=== PATIENT | female | born 1965 | race Two or more races ===

== ENCOUNTER 2025-10-12 15:13 | Inpatient (IN) | payer MEDICAID, OTHER ==
[~2025-10-12] VITALS: Ht 170.2 cm; Wt 121.5 kg
[2025-10-12 15:55] LABS: Hematocrit 40.3 % (36.0-46.0); Hemoglobin 13.7 g/dL (12.2-16.2); Mean Corpuscular Hemoglobin 29.9 pg (28.0-32.0); Mean Corpuscular Volume 87.8 fL (80.0-100.0); Nucleated Red Blood Cells % 0.1 %
--- NOTE | 2025-10-12 15:58 | DVH ---
INDICATION: dizziness TECHNIQUE: Frontal view of the chest. COMPARISON: None FINDINGS/IMPRESSION: The lungs are clear. The cardiomediastinal silhouette is unremarkable. No pleural effusion or pneumothorax. No acute osseous abnormality.
[2025-10-12 16:03] LABS: Chloride 102 mmol/L (98-107); Potassium 4.4 mmol/L (3.5-5.1); Sodium 141 mmol/L (136-145)
[2025-10-12 16:04] LABS: Anion Gap 12 (5-15); Carbon Dioxide 27 mmol/L (20-31)
[2025-10-12 16:09] LABS: BUN/Creatinine Ratio 13.5 (10.0-20.0); Glucose 91 mg/dL (74-106)
[2025-10-12 16:14] LABS: Blood Urea Nitrogen 31 mg/dL (9-23)
[2025-10-12 16:16] LABS: Calcium 13.0 mg/dL (8.7-10.4)
--- NOTE | 2025-10-12 16:27 | ED.PDOC ---
HPI (NEURO) HPI Comments 60-year-old female who presents to the ED for chief complaint of dizziness. Patient states her dizziness episode started yesterday while at the end of her shift. Patient stated that she was going to pass out and felt lightheaded but states she did not have a syncopal episode. Patient today earlier this afternoon at work stated that she had a similar episode where she felt lightheaded again but states she did not have a syncopal episode. Patient s tates her dizziness episode became severe that she came to the ED for evaluation. Patient otherwise in the ED is alert oriented x4 and no noted changes in gait patient notes speech are noted. Patient in ED otherwise on any associated injury or trauma. Patient otherwise states that she is currently having nausea. Patient otherwise states that she recently start Mounjaro one week prior for weight loss. Patient in the ED otherwise has stable vitals. Patient denies any other symptoms. 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 [employer] Hx Family History Family History: Reviewed,noncontributory to illness Social History Smoker: Non-Smoker Alcohol: Denies ETOH Use Drugs: Denies Drug Use Lives In: Home Constitutional: denies: chills, diaphoresis, fatigue, fever, malaise, sweats, weakness, others EENTM: denies: blurred vision, double vision, ear bleeding, ear discharge, ear drainage, ear pain, ear ringing, eye pain, eye redness, hearing loss, mouth pain, mouth swelling, nasal discharge, nose bleeding, nose congestion, nose pain, photophobia, tearing, throat pain, throat swelling, voice changes, others Respiratory: denies: cough, hemoptysis, orthopnea, SOB at rest, shortness of breath, SOB with excertion, stridor, wheezing, others Cardiovascular: denies: chest pain, dizzy spells, diaphoresis, Dyspnea on exertion, edema, irregular heart beat, left arm pain, lightheadedness, palpitations, PND, syncope, others Gastrointestinal: reports: nausea; denies: abdomen distended, abdominal pain, blood streaked bowels, constipated, diarrhea, dysphagia, difficulty swallowing, hematemesis, melena, poor appetite, poor fluid intake, rectal bleeding, rectal pain, vomiting, others Genitourinary: denies: abnormal vagina bleeding, burning, dyspareunia, dysuria, flank pain, frequency, hematuria, incontinence, pain, , vagina discharge, urgency, others Neurological: reports: dizziness; denies: fainting, headache, left sided numbness, left sided weakness, numbness, paresthesia, pre-existing deficit, right sided numbness, right sided weakness, seizure, speech problems, tingling, tremors, weakness, others Musculoskeletal: denies: back pain, gout, joint pain, joint swelling, muscle pain, muscle stiffness, neck pain, others Integumetry: denies: bruises, change in color, change in hair/nails, dryness, laceration, lesions, lumps, rash, wounds, others Allergic/Immunocompromised: denies: Difficulty Healing, Frequent Infections, Hives, Itching, others Hematologic/Lymphatic: denies: anemia, blood clots, easy bleeding, easy bruising, swollen glands, others Endocrine: denies: excessive hunger, excessive sweating, excessive thirst, excessive urination, flushing, intolerance to cold, intolerance to heat, unexplained weight gain, unexplained weight loss, others Psychiatric: denies: anxiety, bipolar disorder, depression, hopeless, panic disorder, schizophrenia, sleepless, suicidal, others All Other Systems: Reviewed and Negative Physical Exam General Appearance: No Apparent Distress, Normal HEENT: Normal ENT Inspection, Pharynx Normal, TMs Normal Neck: Full Range of Motion, Non-Tender, Normal, Normal Inspection Respiratory: Chest Non-Tender, Lungs Clear, No Accessory Muscle Use, No Respiratory Distress, Normal Breath Sounds Cardiovascular: No Edema, No JVD, No Murmur, No Gallop, Normal Peripheral Pulses, Regular Rate/Rhythm Breast Exam: Deferred Gastrointestinal: No Organomegaly, Non Tender, No Pulsatile Mass, Normal Bowel Sounds, Soft Genitalia: Deferred Pelvic: Deferred Rectal: Deferred Extremities: No calf tenderness, Normal capillary refill, Normal inspection, Normal range of motion, Non-tender, No pedal edema Musculoskeletal : Apperance: Normal Neurologic: Alert, associate team physician II-XII nml as Tested, No Motor Deficits, Normal Affect, Normal Mood, No Sensory Deficits Cerebellar Function: Normal Reflexes: Normal Skin: Dry, Normal Color, Warm Lymphatic: No Adenopathy Was a procedure done? Was a procedure done?: No Differential Diagnosis (SZ) Seizure: N/A General Weakness: Anemia, Dehydration, Encephalopathy, Hypoglycemia, Hypotension, Meniere's disease, TIA, Vertigo: central, Vertigo: peripheral X-Ray, Labs, Meds, VS Vital Signs Date Time Temp Pulse Resp B/P (MAP) Pulse Ox O2 Delivery O2 Flow Rate FiO2 10/12/25 15:21 86 10/12/25 15:14 98.0 94 15 128/79 99 98.0 Lab Test 10/12/25 16:35 10/12/25 16:05 10/12/25 15:43 10/12/25 15:29 Range/Units Troponin I High Sensitivity Pending 3 L </=34 ng/L Urine Color Light-yellow Yellow Urine Clarity Turbid H Clear Urine pH 5.5 5.0-9.[address] 1.019 1.001-1.035 Urine Protein Trace H Negative Urine Ketones Negative Negative Urine Blood Negative Negative /uL Urine Nitrite Negative Negative Urine Bilirubin Negative Negative Urine Urobilinogen Normal Negative mg/dL Urine Leukocyte Esterase 3+ Negative /uL Urine RBC 2 0 - 4 /hpf Urine Microscopic WBC 51 H 0-5 /HPF Urine Squamous Epithelial Cells Few <5 /hpf Urine Bacteria Few H None Seen /hpf Urine Mucus Few None Seen Urine Glucose Normal Normal mg/dL White Blood Count 7.4 4.4-10.8 10^3/uL Red Blood Count 4.59 4.0-5.20 10^6/uL Hemoglobin 13.7 12.2-16.2 g/dL Hematocrit 40.3 36.0-46.0 % Mean Corpuscular Volume 87.8 80.0-100.0 fL Mean Corpuscular Hemoglobin 29.9 28.0-32.0 pg Mean Corpuscular Hemoglobin Concent 34.1 32.0-36.0 g/dL Red Cell Distribution Width 12.9 11.8-14.3 % Platelet Count 275 140-450 10^3/uL Mean Platelet Volume 8.8 6.9-10.8 fL Neutrophils (%) (Auto) 63.2 37.0-80.0 % Lymphocytes (%) (Auto) 24.5 10.0-50.0 % Monocytes (%) (Auto) 9.4 0.0-12.0 % Eosinophils (%) (Auto) 2.4 0.0-7.0 % Basophils (%) (Auto) 0.5 0.0-2.0 % Neutrophils # (Auto) 4.7 1.6-8.6 10 ^3/uL Lymphocytes # (Auto) 1.8 0.4-5.4 10 ^3/uL Monocytes # (Auto) 0.7 0-1.3 10 ^3/uL Eosinophils # (Auto) 0.2 0-0.8 10 ^3/uL Basophils # (Auto) 0 0-0.2 10 ^3/uL Nucleated Red Blood Cells 0.1 % Sodium Level 141 136-145 mmol/L Potassium Level 4.4 3.5-5.1 mmol/L Chloride Level 102 98-107 mmol/L Carbon Dioxide Level 27 20-31 mmol/L Anion Gap 12 5-15 Blood Urea Nitrogen 31 H 9-23 mg/dL Creatinine 2.30 H 0.550-1.02 mg/dL Glomerular Filtration Rate Calc 23 >90 mL/min BUN/Creatinine Ratio 13.5 10.0-20.0 Serum Glucose 91 74-106 mg/dL Calcium Level 13.0 *H 8.7-10.4 mg/dL B-Type Natriuretic Peptide 17.67 0-100 pg/mL POC Glucose 89 70-106 mg/dl [place] [id number] Ph: [phone] DIAGNOSTIC IMAGING Diagnostic Imaging Report : [id number] Signed PATIENT: PAUL PANIAGUA ACCT: [id number] UNIT: [id number] : 1965 LOC: ER ROOM / BED: / AGE / SEX: 60 / F ADM STATUS: REG ER SERVICE 1530 ORDERING PHYSICIAN: VINH BARBER MD PROCEDURE(s): CXRP - CHEST PORTABLE REASON: dizziness ORDER NUMBER(s): [id number], ACCESSION NUMBER(s): [id number] INDICATION: dizziness TECHNIQUE: Frontal view of the chest. COMPARISON: None FINDINGS/IMPRESSION: The lungs are clear. The cardiomediastinal silhouette is unremarkable. No pleural effusion or pneumothorax. No acute osseous abnormality. ATED BY: TONY CANELA MD DICTATED DATE/TIME: 10/12/251554 SIGNED BY: TONY CANELA MD SIGNED DATE/TIME: 10/12/251554 CC: Time of 1ST Reevaluation: 16:50 Reevaluation 1ST: Unchanged Patient Education/Counseling: Diagnosis, Treatment Family Education/Counseling: No Family Present Departure 1 Departure Time of Disposition: 17:32 (Patient with urinary tract infection causing near- syncope. Patient also with an FRANKLIN and elevated calcium. Did not give patient the full fluid bolus for sepsis as patient is obese. We will empirically cover patient with antibiotics admit patient for further workup and expert consultation) Impression: Primary Impression: Suspected sepsis Additional Impressions: Acute urinary tract infection Hypercalcemia FRANKLIN (acute kidney injury) Disposition: 09 ADMITTED INPATIENT Admit to: Tele Condition: Guarded Critical Care Note Critical Care Time?: Yes Critical care comment: Suspected sepsis Authorized and Performed by: Vinh Barber MD Total critical care time: Approximately 37 minutes Due to a high probability of clinically significant, life threatening deterioration, the patient required my highest level of preparedness to intervene emergently and I personally spent this critical care time directly and personally managing the patient. This critical care time included obtaining a history; examining the patient; pulse oximetry; ordering and review of studies; arranging urgent treatment with development of a management plan; evaluation of patient's response to treatment; frequent reassessment; and, discussions with other providers. This critical care time was performed to assess and manage the high probability of imminent, life-threatening deterioration that could result in multi-organ failure. It was exclusive of separately billable procedures and treating other patients and teaching time. Please see my other sections and the rest of the note for further information on patient assessment and treatment. Stability Stability form required: No Heart Score Heart Score: Heart Score Response (Comments) Value History N/A 0 EKG N/A 0 Age N/A 0 Risk Factors N/A 0 Troponin N/A 0 Total 0 I personally scribed for VINH BARBER MD (TAMARA) on 10/12/25 at 16:27. Electronically submitted by Anuradha Rachel ([email or web address]). I personally scribed for VINH BARBER MD (TAMARA) on 10/12/25 at 16:35. Electronically submitted by Anuradha Rachel ([email or web address]). VINH BARBER MD Oct 12, 2025 16:27
[2025-10-12 17:14] LABS: Urine Protein, UAD TRACE (Negative)
[2025-10-12] MEDS: SODIUM CHLORIDE 0.9% 2,000 ML IV ONE (18:18)
--- NOTE | 2025-10-12 18:45 | ECG ---
[facility] Test Date: 2025-10-12 Test Time: 15:21:14 Pat Name: PAUL PANIAGUA Department: ER Room: 0293T Gender: F Field Technical Support Consultant: RAFA : 1965 Requested By: VINH ELIAS Order Number: [id number] Reading MD: Alexis Brannon Measurements Intervals [place] Rate: 86 P: 37 WI: 154 QRS: 73 QRSD: 91 T: -25 QT: 316 QTc: 378 Interpretive Statements Sinus rhythm Borderline repolarization abnormality Electronically Signed On 10-13-2025 17:25:39 PST by Alexis Brannon Please click the below link to view image of tracing.
[2025-10-12] MEDS ORDERED: ONDANSETRON HCL 4 MG/2 ML VIAL IV PRN (22:00)
[2025-10-12] MEDS ORDERED: ACETAMINOPHEN 325 MG TAB PO PRN (22:00)
[2025-10-12 22:56] LABS: Magnesium 2.0 mg/dL (1.6-2.6)
--- NOTE | 2025-10-12 23:35 | DVH ---
CLINICAL HISTORY: Abdominal pain. Rule out kidney stones. TECHNIQUE: CT of the abdomen and pelvis was performed without intravenous contrast. This exam was performed according to our departmental dose optimization program. Up-to-date CT equipment and radiation dose reduction techniques are utilized as appropriate. CTDIvol: 24.2 mGy; DLP: 1546.1 mGy-cm. COMPARISON: None available. FINDINGS: Lack of intravenous contrast limits assessment of the organs and vasculature. Within this limitation, the following assessment is made: Lower Chest: Lung Bases: Clear. Abdomen and Pelvis: Liver: Unremarkable. Gallbladder: Unremarkable. Bile Ducts: Unremarkable. Pancreas: Unremarkable. Spleen: Unremarkable. Adrenal glands: Unremarkable. Kidneys/Ureters: Right kidney inferior pole with a nonobstructing stone measuring up to 6 mm (2/49, 601/62). No evidence of left-sided urinary tract stones. No evidence of obstructing urinary tract stones. No hydroureteronephrosis. Stomach: Unremarkable. Small and Large Bowel: No evidence of bowel obstruction or abnormal bowel wall thickening. Mild sigmoid colon diverticulosis without evidence of diverticulitis. Appendix: Surgically absent. Vasculature: Mild calcific atherosclerosis of the abdominal aorta and branches. No evidence of an abdominal aortic aneurysm. Lymph nodes: Unremarkable. Mesentery: No evidence of intraperitoneal free gas or liquid. Pelvic Organs: Prior hysterectomy. Bladder: Unremarkable. Abdominal Wall: Small fat-containing umbilical hernia. Soft tissues: Unremarkable. Bones: No acute or suspicious osseous abnormality. Severe degenerative changes of the lumbar spine (with notable multilevel advanced degenerative discogenic changes/vacuum disc phenomenon and high-grade spinal canal stenoses at the L2- L3, L3-L4, and L4-L5 levels). Osseous structures are demineralized. Other: None. IMPRESSION: 1. No acute intra-abdominal or intrapelvic abnormality. Specifically, no obstructing urinary tract stones or hydroureteronephrosis. 2. Right kidney inferior pole with a nonobstructing stone measuring 6 mm. 3. Mild sigmoid colon diverticulosis without evidence of diverticulitis. 4. Severe degenerative changes of the lumbar spine with multilevel high-grade spinal canal stenoses as described.
[2025-10-12 23:43] VITALS: BP 118/65; PULSE 78; RESP 20; TEMP 98; O2SAT 95
[2025-10-13] VITALS (8 sets, daily range): BP systolic 103–139; BP diastolic 58–81; PULSE 77–87; RESP 18–19; TEMP 97–98.9; O2SAT 92–100
[2025-10-13] MEDS: SODIUM CHLORIDE 0.9% 1,000 ML IV ONE (00:01)
[2025-10-13] MEDS ORDERED: CYAN1TAB14 PO (00:49)
[2025-10-13 02:04] LABS: Protein, Urine 32.7 mg/dL (1-14)
[2025-10-13 02:05] LABS: Amphetamine Screen, Urine Neg (NEGATIVE)
[2025-10-13 02:07] LABS: Barbiturate Scree,Urine Neg (NEGATIVE); Benzodiazephine Screen, Urine Neg (NEGATIVE); Cannabinoid Screen, Urine Neg (NEGATIVE); Cocaine Screen, Urine Neg (NEGATIVE); Opiate Scree,Urine Neg (NEGATIVE); Phencyclidine Screen, Urine Neg (NEGATIVE)
--- NOTE | 2025-10-13 05:26 | DVHHPRES ---
History of Present Illness Resident Creating Document: MARINA HUFF RESIDENT History of Present Illness Patient is a 60-year-old female with past medical history of diabetes mellitus, hypertension, anxiety, hyperlipidemia, kidney stones who presents to the ED for chief complaint of dizziness. Patient states her dizziness and blurry vision episode started yesterday while at the end of her shift. Patient stated that she started work yesterday and felt like passing out and but states she did not have a syncopal episode or lose consciousness. patient states that she started taking Mounjaro 5 weeks go and had side effects including nausea, diarrhea, constipation. she does complain of on and off left flank pain with activity. Patient otherwise Patient denies any fever, chills, diarrhea, dysuria, burning sensation, hematuria, nausea, vomiting as of now. PMHx: diabetes mellitus, hypertension, anxiety, hyperlipidemia, kidney stones PSHx: Appendectomy, hysterectomy, bilateral knee replacement Family history: reviewed, noncontributory Social history: denies smoking, drinks occasionally, denies drug use Home medication: Mounjaro, metformin, bupropion, simvastatin, Olmesartan, Tolterodine, Lopressor, paroxetine Allergic history: sulfa drugs PCP: Dr. Kinsey Patient seen at bedside. Patient currently does not complain of any dizziness, nausea, vomiting, diarrhea, Dysuria, hematuria, burning sensation with urination. Review of Systems Constitutional: Yes: Weakness; No: Fever, Chills, Sweats, Malaise, Other Eyes: Vision change; No: Pain, Conjunctivae inflammation, Eyelid inflammation, Other, Redness ENT: No: Ear pain, Ear discharge, Nose pain, Nose discharge, Nose congestion, Mouth pain, Mouth swelling, Throat pain, Throat swelling, Other Respiratory: No: Cough, Dry, Shortness of breath, SOB with excertion, Wheezing, Hemoptysis, Pleuritic Pain, Sputum, Wheezing, Other Cardiovascular: No: Chest Pain, Palpitations, Orthopnea, Paroxysmal Noc. Dyspnea, Edema, Lt Headedness, Other Gastrointestinal: Nausea, Vomiting, Abdominal Pain, Diarrhea, Constipation Genitourinary: No Dysuria, No Frequency, No Incontinence, No Hematuria, No Retention, No Other Musculoskeletal: No: other, neck pain, shoulder pain, arm pain, back pain, hand pain, leg pain, foot pain Skin: No: Rash, Lesions, Jaundice, Bruising, Other Neurological: Other (Dizziness); No: Weakness, Numbness, Incoordination, Change in speech, Confusion, Seizures Allergies: Coded Allergies: Sulfabenzamide (Verified Allergy, Severe, 10/12/25) Sulfacetamide (Verified Allergy, Severe, 10/12/25) Sulfathiazole (Verified Allergy, Severe, 10/12/25) Medications Current Medications Medications Dose Ordered Sig/Christiano Route Start Time Stop Time Status Last Admin Dose Admin Ondansetron HCl 4 mg Q4HP PRN IV 10/12/25 22:00 Acetaminophen 650 mg Q6HP PRN PO 10/12/25 22:00 Ceftriaxone Sodium/Dextrose 50 ml @ 50 mls/hr DAILY IV 10/13/25 10:00 Atorvastatin Calcium 40 mg HS PO 10/13/25 22:00 Enoxaparin Sodium 30 mg DAILY SC 10/13/25 10:00 Exam Vital Signs Vital Signs Date Time Temp Pulse Resp B/P (MAP) Pulse Ox O2 Delivery O2 Flow Rate FiO2 10/13/25 01:00 98.0 77 18 118/65 (82) 92 98.0 10/12/25 23:43 Room Air* 0 21 Exam General: Patient alert and oriented in person, place and time. Patient following commands. HEENT: Normocephalic, atraumatic, moist mucous membranes Respiratory/pulmonary: Clear lungs bilaterally, vesicular murmurs present in almost all lung snyder, no associated crackles or wheezes. Cardiovascular: Normal heart sounds S1 and S2 with no associated murmurs Abdomen: mild left flank tenderness, obese abdomen Extremities: There is no peripheral edema present at the lower extremities. Peripheral Pulses: 3+ Radial (R). 3+ Radial (L). 3+ Dorsalis pedis (R). 3+ Dorsalis pedis(L) Skin: No rashes or pruritus, there is no sacral edema present at this time. Neurological: Intact cranial nerves with no focal neurologic deficits Labs/Xrays Labs Test 10/12/25 22:15 10/12/25 22:01 10/12/25 18:20 10/12/25 17:44 Range/Units Urine Creatinine 137.59 H 30.0-125.0 mg/dL Urine Sodium 93 40-220 mmol/L Urine Opiates Screen Neg NEGATIVE Urine Fentanyl Screen Neg NEGATIVE Urine Barbiturates Screen Neg NEGATIVE Urine Phencyclidine Screen Neg NEGATIVE Urine Amphetamines Screen Neg NEGATIVE Urine Benzodiazepines Screen Neg NEGATIVE Urine Cocaine Screen Neg NEGATIVE Urine Cannabinoids Screen Neg NEGATIVE Phosphorus Level 4.8 2.4-5.1 mg/dL Magnesium Level 2.0 1.6-2.6 mg/dL Troponin I High Sensitivity 4 </=34 ng/L Thyroid Stimulating Hormone (TSH) 2.52 0.55-4.78 uIU/mL Parathyroid Hormone (Intact) 2.2 L 18.4-80.1 pg/mL Lactic Acid Level 1.4 0.4-2.0 mmol/L Test 10/12/25 16:05 10/12/25 15:43 10/12/25 15:29 10/12/25 00:00 Range/Units Urine Color Light-yellow Yellow Urine Clarity Turbid H Clear Urine pH 5.5 5.0-9.0 Urine Specific [place] 1.019 1.001-1.035 Urine Protein Trace H Negative Urine Ketones Negative Negative Urine Blood Negative Negative /uL Urine Nitrite Negative Negative Urine Bilirubin Negative Negative Urine Urobilinogen Normal Negative mg/dL Urine Leukocyte Esterase 3+ Negative /uL Urine RBC 2 0 - 4 /hpf Urine Microscopic WBC 51 H 0-5 /HPF Urine Squamous Epithelial Cells Few <5 /hpf Urine Bacteria Few H None Seen /hpf Urine Mucus Few None Seen Urine Glucose Normal Normal mg/dL White Blood Count 7.4 4.4-10.8 10^3/uL Red Blood Count 4.59 4.0-5.20 10^6/uL Hemoglobin 13.7 12.2-16.2 g/dL Hematocrit 40.3 36.0-46.0 % Mean Corpuscular Volume 87.8 80.0-100.0 fL Mean Corpuscular Hemoglobin 29.9 28.0-32.0 pg Mean Corpuscular Hemoglobin Concent 34.1 32.0-36.0 g/dL Red Cell Distribution Width 12.9 11.8-14.3 % Platelet Count 275 140-450 10^3/uL Mean Platelet Volume 8.8 6.9-10.8 fL Neutrophils (%) (Auto) 63.2 37.0-80.0 % Lymphocytes (%) (Auto) 24.5 10.0-50.0 % Monocytes (%) (Auto) 9.4 0.0-12.0 % Eosinophils (%) (Auto) 2.4 0.0-7.0 % Basophils (%) (Auto) 0.5 0.0-2.0 % Neutrophils # (Auto) 4.7 1.6-8.6 10 ^3/uL Lymphocytes # (Auto) 1.8 0.4-5.4 10 ^3/uL Monocytes # (Auto) 0.7 0-1.3 10 ^3/uL Eosinophils # (Auto) 0.2 0-0.8 10 ^3/uL Basophils # (Auto) 0 0-0.2 10 ^3/uL Nucleated Red Blood Cells 0.1 % Sodium Level 141 136-145 mmol/L Potassium Level 4.4 3.5-5.1 mmol/L Chloride Level 102 98-107 mmol/L Carbon Dioxide Level 27 20-31 mmol/L Anion Gap 12 5-15 Blood Urea Nitrogen 31 H 9-23 mg/dL Creatinine 2.30 H 0.550-1.02 mg/dL Glomerular Filtration Rate Calc 23 >90 mL/min BUN/Creatinine Ratio 13.5 10.0-20.0 Serum Glucose 91 74-106 mg/dL Hemoglobin A1c 6.5 H <5.7 % A1C Calcium Level 13.0 *H 8.7-10.4 mg/dL B-Type Natriuretic Peptide 17.67 0-100 pg/mL POC Glucose 89 70-106 mg/dl Urine Protein/Creatinine Ratio 0.23 Urine Total Protein 32.7 H 1-14 mg/dL SEPSIS Sepsis Screen Date sepsis recognized/suspect: Oct 12, 2025 Time Sepsis recognized/suspect: 1824 Recent Procedure: No On Antibiotic Therapy: No Respiratory Rate >20: No Heart Rate >90: No Temp<36 C (96.8 F) or >38.3 C: No SBP <90 or MAP <65 mmHG: No New Acute Mental Status Change: No Is the patient on CPAP, BIPAP,: No Physician Orders Code Status (10/12/25 21:56) 2 Gm Sodium Diet (10/13/25 Breakfast) Ondansetron Hcl (Zofran) (10/12/25 22:00) Complete Blood Count (10/13/25 04:00) Condition: Serious (10/12/25 21:56) Acetaminophen Tablet (Tylenol Tablet) (10/12/25 22:00) Stat Ekg For Chest Pain (10/12/25 21:56) Notify Md Of Changes From Base (10/12/25 21:56) Shop Fitter For 24 Hours (10/12/25 21:56) Emergency Dysrhythmia Protocol (10/12/25 21:56) Rhythm Strips Once Every Shift (10/12/25 21:56) Ceftriaxone 2gm/50ml (Rocephin 2gm/50ml) (10/13/25 10:00) Ct Ab Pel Wo Con-No Oral Or Iv (10/12/25 22:01) Admit (10/12/25 22:01) Sodium Chloride 0.9% (10/12/25 22:15) Atorvastatin (Lipitor) (10/13/25 22:00) Echo 2d Mode Cardiac Dop (10/12/25 22:15) Orthostatic Vital Signs (10/12/25 22:15) Vitamin D 25-Hydroxy D2 + D3 (10/12/25 22:15) Lipid Panel (10/13/25 00:04) Hepatic Panel (10/13/25 00:04) Enoxaparin Sodium (Lovenox) (10/13/25 10:00) Comprehensive Metabolic Panel (10/13/25 04:00) * Dietary Consult (10/13/25 04:56) Vital Signs Date Time Temp Pulse Resp B/P (MAP) Pulse Ox O2 Delivery O2 Flow Rate FiO2 10/13/25 01:00 98.0 77 18 118/65 (82) 92 98.0 10/12/25 23:43 98.0 78 20 118/65 (82) 95 98.0 10/12/25 23:43 Room Air* 0 21 10/12/25 22:52 Room Air* 0 21 Laboratory Tests Test 10/12/25 17:44 Lactic Acid Level 1.4 mmol/L (0.4-2.0) Medications Medications Dose Ordered Sig/Christiano Route Start Time Stop Time Status Last Admin Dose Admin Ceftriaxone Sodium 50 ml @ 100 mls/hr ONCE ONCE IV 10/12/25 17:30 10/12/25 17:59 DC 10/12/25 18:19 100 MLS/HR Sodium Chloride 1,000 ml @ 125 mls/hr Q8H ONCE IV 10/12/25 22:15 10/13/25 06:14 10/13/25 00:01 125 MLS/HR Sodium Chloride 2,000 ml @ 1,000 mls/hr Q2H ONCE IV 10/12/25 17:30 10/12/25 19:29 DC 10/12/25 18:18 1,000 MLS/HR Assessment/Plan Assessment/Plan presyncope likely due to orthostatic hypotension Possible acute complicated UTI Possible FRANKLIN on CKD due to VMN nonobstructing stone measuring 6 mm. Hypercalcemia Calcium-13 PTH - 2.[address] abdomen showed Right kidney inferior pole with a nonobstructing stone measuring 6 mm. Mild sigmoid colon diverticulosis without evidence of diverticulitis. Severe degenerative changes of the lumbar spine with multilevel high-grade spinal canal stenoses as described. diabetes mellitus HbA1c 6.5 Hypertension Continue home meds Hyperlipidemia - atorvastatin Anxiety/depression Continue home meds obesity BMI 39.7 Patient counseled on diet, exercise, lifestyle modifications for 18 minutes Diet: 2 g sodium diet DVT prophylaxis: Lovenox Goals of care addressed with the patient for more than 27 minutes: Full code status Case discussed with Dr. Tang , patient and nurse Plan discussed with: Patient My Orders Orders - MARINA HUFF RESIDENT Procedure Category Date Status Time Code Status CODE 10/12/25 Transmitted 21:56 2 Gm Sodium Diet DIET 10/13/25 Transmitted Breakfast Ondansetron Hcl PHA 10/12/25 In Process (Zofran) 22:00 Complete Blood Count LAB 10/13/25 Logged 04:00 Condition: Serious FRACISCO 10/12/25 In Process 21:56 Acetaminophen Tablet PHA 10/12/25 In Process (Tylenol Tablet) 22:00 Stat Ekg For Chest FRACISCO 10/12/25 In Process Pain 21:56 Notify Of Changes FRACISCO 10/12/25 In Process From Base 21:56 Shop Fitter For FRACISCO 10/12/25 In Process 24 Hours 21:56 Emergency Dysrhythmia FRACISCO 10/12/25 In Process Protocol 21:56 Rhythm Strips Once FRACISCO 10/12/25 In Process Every Shift 21:56 Ceftriaxone 2gm/50ml PHA 10/13/25 In Process (Rocephin 2gm/50ml) 10:00 Ct Ab Pel Wo Con-No CT 10/12/25 Resulted Oral Or Iv 22:01 Admit ADMIT 10/12/25 Transmitted 22:01 Sodium Chloride 0.9% PHA 10/12/25 In Process 22:15 Atorvastatin (Lipitor) PHA 10/13/25 In Process 22:00 Echo 2d Mode Cardiac US 10/12/25 Logged DOP 22:15 Orthostatic Vital ORDERS 10/12/25 Transmitted Signs 22:15 Vitamin D 25-Hydroxy LAB 10/12/25 Logged D2 + D3 22:15 Lipid Panel LAB 10/13/25 Logged 00:04 Hepatic Panel LAB 10/13/25 Logged 00:04 Enoxaparin Sodium PHA 10/13/25 In Process (Lovenox) 10:00 Comprehensive LAB 10/13/25 Logged Metabolic Panel 04:00 * Dietary Consult CONS 10/13/25 Transmitted 04:56 Visit Coding STANDARD RES Billing Provider: ELIN TANG MD Date of Service if different f: Oct 12, 2025 Common Visit Codes: [id number] INP/OBS CARE (HIGH) Secondary Visit Codes: [id number] CARE PLAN 30 MINUTES MARINA HUFF RESIDENT Oct 13, 2025 05:26
[2025-10-13 07:11] LABS: Hematocrit 36.6 % (36.0-46.0); Hemoglobin 12.3 g/dL (12.2-16.2); Mean Corpuscular Hemoglobin 29.5 pg (28.0-32.0); Mean Corpuscular Volume 87.8 fL (80.0-100.0); Nucleated Red Blood Cells % 0.1 %
[2025-10-13 07:25] LABS: Alanine Aminotransferase 33 U/L (7-40); Alkaline Phosphatase 92 U/L (46-116); Anion Gap 12 (5-15); BUN/Creatinine Ratio 18.4 (10.0-20.0); Carbon Dioxide 24 mmol/L (20-31); Chloride 106 mmol/L (98-107); Glucose 104 mg/dL (74-106); Potassium 4.0 mmol/L (3.5-5.1); Sodium 142 mmol/L (136-145); Total Protein 6.5 g/dL (5.7-8.2)
[2025-10-13 07:26] LABS: Albumin 4.1 g/dL (3.2-4.8); Cholesterol 105 mg/dL (< 200)
[2025-10-13 07:27] LABS: Bilirubin, Direct < 0.1 mg/dL (<0.3); Bilirubin, Total 0.3 mg/dL (0.2-1.0); Blood Urea Nitrogen 32 mg/dL (9-23); Calcium 11.0 mg/dL (8.7-10.4); HDL Cholesterol 34 mg/dL (40-59); Triglycerides 186 mg/dL (< 150)
[2025-10-13] MEDS: ENOXAPARIN SOD 40 MG/0.4 ML SYRINGE SC SCH (09:12)
[2025-10-13] MEDS: SODIUM CHLORIDE 0.9% 1,000 ML IV SCH (09:38)
--- NOTE | 2025-10-13 16:05 | DVHPNRES ---
Progress Note Date Seen: Oct 13, 2025 Resident Creating Document: KASIE JEFFERY RESIDENT Medical Necessity Reason Pt with a Central, PICC or Fol: No Subjective Review of Systems Patient is a 60-year-old female with past medical history of diabetes mellitus, hypertension, anxiety, hyperlipidemia, kidney stones who presents to the ED for chief complaint of dizziness. Patient states her dizziness and blurry vision episode started yesterday while at the end of her shift. Patient stated that she started work yesterday and felt like passing out but never lost consciousness. Patient also endorsed increased frequency and urgency of micturition for last couple of days. patient states that she started taking Mounjaro 5 weeks go and had side effects including nausea, diarrhea, constipation. she does complain of on and off left flank pain with activity. Patient otherwise Patient denies any fever, chills, diarrhea, dysuria, burning sensation, hematuria, nausea, vomiting as of now. Initial lab workup revealed serum creatinine 2.30> 1.74. Triglyceride 186, troponin I and BNP with a normal. Urinalysis revealed leukocyte esterase 3+, WBC 51, bacteria few. Urinary creatinine 137.59, urinary sodium 93, urinary total protein 32.7. UDS negative. CXR no acute abnormality. CT abdomen and pelvis revealed -Right kidney inferior pole with a nonobstructing stone measuring 6 mm.Mild sigmoid colon diverticulosis without evidence of diverticulitis. Severe degenerative changes of the lumbar spine with multilevel high-grade spinal canal stenoses as described. PMHx: diabetes mellitus, hypertension, anxiety, hyperlipidemia, kidney stones PSHx: Appendectomy, hysterectomy, bilateral knee replacement Family history: reviewed, noncontributory Social history: denies smoking, drinks occasionally, denies drug use Home medication: Mounjaro, metformin, bupropion, simvastatin, Olmesartan, Tolterodine, Lopressor, paroxetine Allergic history: sulfa drugs PCP: Dr. Tio ROBERTO Cardiovascular- deny acute chest pain or shortness of breath or cough or palpitation Respiratory denies cough or short of breath or wheezing Gastrointestinal- denies any rectal bleeding, nausea or vomiting Musculoskeletal-denies acute joint swelling or tenderness or redness Neurological- denies acute dysarthria, dysphagia, change in vision Psychiatry- denies depression or SI or HI Skin- denies acute rash or purpura Patient was seen today at bedside Labs and chart reviewed Complaint of back Ordered baclofen Pending blood culture, urine culture Continue ceftriaxone and IV normal saline as prescribed Objective vital signs Vital Sign Date Time Temp Pulse Resp B/P (MAP) Pulse Ox O2 Delivery O2 Flow Rate FiO2 10/13/25 13:00 97.9 87 19 120/71 (87) 96 97.9 10/13/25 08:00 Room Air* 0 21 Total Intake and Output 10/12/25 10/12/25 10/13/25 15:00 23:00 07:00 Intake Total 300 ml Balance 300 ml medications Current Medications Medications Dose Ordered Sig/Christiano Route Start Time Stop Time Status Last Admin Dose Admin Ondansetron HCl 4 mg Q4HP PRN IV 10/12/25 22:00 Acetaminophen 650 mg Q6HP PRN PO 10/12/25 22:00 Ceftriaxone Sodium/Dextrose 50 ml @ 50 mls/hr DAILY IV 10/13/25 10:00 10/13/25 09:13 50 MLS/HR Atorvastatin Calcium 40 mg HS PO 10/13/25 22:00 Sodium Chloride 1,000 ml @ 75 mls/hr [id number] IV 10/13/25 09:30 10/13/25 09:38 75 MLS/HR Enoxaparin Sodium 40 mg DAILY SC 10/14/25 10:00 Examination General examination- awake, alert, oriented HEENT- PEERLA, no acute nasal discharge Cardiovascular- S1-S2 audible, rate and rhythm regular, no murmur Respiratory- CTAB, no wheeze or rhonchi Gastrointestinal-nontender, bowel sound+. Nondistended Musculoskeletal-no acute joint swelling or tenderness or redness Lower extremity- no leg edema Neurological- cranial nerves intact, no acute dysarthria or dysphagia Psychiatry- denies depression or SI or HI Skin- no acute rash or purpura laboratory and microbiology Laboratory Tests 10/13/25 06:20 Test 10/13/25 06:20 Range/Units Serum Glucose 104 74-106 mg/dL Microbiology Date/Time Source Procedure Growth Status 10/12/25 16:05 Voided Urine Urine Culture - Preliminary Resulted Problem List/Assessment/Plan Problem List/Assessment/Plan # acute complicated UTI # suspected sepsis -pending blood culture, urine culture -continue ceftriaxone IV as prescribed -continue IV fluid as prescribed # FRANKLIN likely due to VMN -continue IV fluid as prescribed -avoid dehydration and nephrotoxic # presyncope -ordered orthostatic vitals -avoid dehydration -continue IV fluid as prescribed -monitor vitals # nephrolithiasis -follow up outpatient with the Urology # diabetes mellitus type 2 # dyslipidemia -monitor blood sugar -atorvastatin 40 mg p.o. q.h.s. # hypertension -monitor blood pressure # diverticulosis with the diverticulitis -avoid dehydration and constipation # severe degenerative disease of lumbar spine # multilevel high-grade spinal stenosis -high-grade spinal canal stenoses at the L2-L3, L3-L4, and L4-L5 levels -Tylenol PRN -follow up outpatient with your PCP for further evaluation and care # morbid obesity, BMI 39.7 -counseled about healthy lifestyle Goals of care, Code status full code; discussed with >15 minutes PUD prophylaxis: Pantoprazole DVT prophylaxis: Lovenox Plan discussed with Dr. You , nursing staff, Total time spent on patient evaluation, chart review, assessment and plan, discussion discussion >35 minutes Plan discussed with: Patient, Other (RN) My Orders My Orders Orders - KASIE JEFFERY Procedure Category Date Status Time Transfer Orders XFER 10/13/25 Transmitted 09:14 Dietary Evaluation Review Comments: Diet order; CCHO-60 cardiac Diet, encourage high fiber food for constipation. Follow up with pending Vit D and vit B12 lab values Expected Outcomes/Goals: Controlled DM, gradual wt loss Visit Coding STANDARD RES Billing Provider: OKSANA AMOR MD Date of Service if different f: Oct 13, 2025 Common Visit Codes: [id number] INP/OBS CARE(HIGH) KASIE JEFFERY Oct 13, 2025 16:05
[2025-10-13] MEDS: ATORVASTATIN 20 MG TAB PO SCH (21:28)
[2025-10-14 01:00] VITALS: BP 99/65; PULSE 81; RESP 18; TEMP 97.3; O2SAT 97
[2025-10-14 04:41] LABS: COVID19 ANTIGEN SOFIA FIA NEGATIVE (NEGATIVE)
[2025-10-14 05:00] VITALS: BP 113/69; PULSE 80; RESP 19; TEMP 97.7; O2SAT 100
[2025-10-14 08:00] VITALS: PULSE 82; RESP 17; O2SAT 97
[2025-10-14 09:00] VITALS: BP 133/83; PULSE 82; RESP 17; TEMP 97.7; O2SAT 97
[2025-10-14] MEDS: ENOXAPARIN SOD 40 MG/0.4 ML SYRINGE SC SCH (09:10)
[2025-10-14 09:59] LABS: Hematocrit 37.9 % (36.0-46.0); Hemoglobin 12.4 g/dL (12.2-16.2); Mean Corpuscular Hemoglobin 28.8 pg (28.0-32.0); Mean Corpuscular Volume 88.3 fL (80.0-100.0); Nucleated Red Blood Cells % 0.1 %
[2025-10-14 10:11] LABS: Chloride 107 mmol/L (98-107); Potassium 3.9 mmol/L (3.5-5.1); Sodium 143 mmol/L (136-145)
[2025-10-14 10:12] LABS: Anion Gap 11 (5-15); Calcium 10.0 mg/dL (8.7-10.4); Carbon Dioxide 25 mmol/L (20-31)
[2025-10-14 10:17] LABS: BUN/Creatinine Ratio 16.4 (10.0-20.0); Blood Urea Nitrogen 20 mg/dL (9-23)
[2025-10-14 10:18] LABS: Glucose 106 mg/dL (74-106); Magnesium 1.4 mg/dL (1.6-2.6)
[2025-10-14] MEDS: MAGNESIUM SULFATE 1GM/100ML 100 ML IV SCH (12:07)
[2025-10-14] MEDS ORDERED: CEPH250C PO (12:53)
[2025-10-14 13:00] VITALS: BP 124/83; PULSE 82; RESP 17; TEMP 97.6; O2SAT 100
[2025-10-14 13:48] VITALS: BP 111/67; PULSE 88; RESP 18; TEMP 36.4; O2SAT 96
--- NOTE | 2025-10-14 15:24 | DVHDSRES ---
Discharge Summary Date of Admission Resident Creating Document: KASIE JEFFERY RESIDENT Oct 12, 2025 at 21:56 Date of Discharge: Oct 14, 2025 Admitting Diagnosis Acute complicated UTI with a FRANKLIN Labs/Diagnostic Data: Laboratory Results Test 10/14/25 09:21 10/13/25 06:20 10/13/25 03:30 10/12/25 22:15 White Blood Count 4.7 10^3/uL (4.4-10.8) Red Blood Count 4.29 10^6/uL (4.0-5.20) Hemoglobin 12.4 g/dL (12.2-16.2) Hematocrit 37.9 % (36.0-46.0) Mean Corpuscular Volume 88.3 fL (80.0-100.0) Mean Corpuscular Hemoglobin 28.8 pg (28.0-32.0) Mean Corpuscular Hemoglobin Concent 32.6 g/dL (32.0-36.0) Red Cell Distribution Width 13.2 % (11.8-14.3) Platelet Count 238 10^3/uL (140-450) Mean Platelet Volume 8.6 fL (6.9-10.8) Neutrophils (%) (Auto) 58.4 % (37.0-80.0) Lymphocytes (%) (Auto) 29.0 % (10.0-50.0) Monocytes (%) (Auto) 7.7 % (0.0-12.0) Eosinophils (%) (Auto) 4.2 % (0.0-7.0) Basophils (%) (Auto) 0.7 % (0.0-2.0) Neutrophils # (Auto) 2.7 10 ^3/uL (1.6-8.6) Lymphocytes # (Auto) 1.4 10 ^3/uL (0.4-5.4) Monocytes # (Auto) 0.4 10 ^3/uL (0-1.3) Eosinophils # (Auto) 0.2 10 ^3/uL (0-0.8) Basophils # (Auto) 0 10 ^3/uL (0-0.2) Nucleated Red Blood Cells 0.1 % Sodium Level 143 mmol/L (136-145) Potassium Level 3.9 mmol/L (3.5-5.1) Chloride Level 107 mmol/L (98-107) Carbon Dioxide Level 25 mmol/L (20-31) Anion Gap 11 (5-15) Blood Urea Nitrogen 20 mg/dL (9-23) Creatinine 1.22 mg/dL (0.550-1.02) Glomerular Filtration Rate Calc 50 mL/min (>90) BUN/Creatinine Ratio 16.4 (10.0-20.0) Serum Glucose 106 mg/dL (74-106) Calcium Level 10.0 mg/dL (8.7-10.4) Magnesium Level 1.4 mg/dL (1.6-2.6) Total Bilirubin 0.3 mg/dL (0.2-1.0) Direct Bilirubin < 0.1 mg/dL (<0.3) Aspartate Amino Transferase (AST) 17 U/L (13-40) Alanine Aminotransferase (ALT) 33 U/L (7-40) Alkaline Phosphatase 92 U/L (46-116) Total Protein 6.5 g/dL (5.7-8.2) Albumin 4.1 g/dL (3.2-4.8) Triglycerides Level 186 mg/dL (< 150) Cholesterol Level 105 mg/dL (< 200) LDL Cholesterol 46 mg/dL (< 100) HDL Cholesterol 34 mg/dL (40-59) Influenza Type A Antigen Negative (Negative) Influenza Type B Antigen Negative (Negative) SARS-CoV-2 Antigen (Rapid) Negative (NEGATIVE) Urine Creatinine 137.59 mg/dL (30.0-125.0) Urine Sodium 93 mmol/L (40-220) Test 10/12/25 22:01 10/12/25 18:20 10/12/25 17:44 10/12/25 16:05 Urine Opiates Screen Neg (NEGATIVE) Urine Fentanyl Screen Neg (NEGATIVE) Urine Barbiturates Screen Neg (NEGATIVE) Urine Phencyclidine Screen Neg (NEGATIVE) Urine Amphetamines Screen Neg (NEGATIVE) Urine Benzodiazepines Screen Neg (NEGATIVE) Urine Cocaine Screen Neg (NEGATIVE) Urine Cannabinoids Screen Neg (NEGATIVE) Phosphorus Level 4.8 mg/dL (2.4-5.1) Troponin I High Sensitivity 4 ng/L (</=34) Thyroid Stimulating Hormone (TSH) 2.52 uIU/mL (0.55-4.78) Parathyroid Hormone (Intact) 2.2 pg/mL (18.4-80.1) Lactic Acid Level 1.4 mmol/L (0.4-2.0) Urine Color Light-yellow (Yellow) Urine Clarity Turbid (Clear) Urine pH 5.5 (5.0-9.0) Urine Specific [place] 1.019 (1.001-1.035) Urine Protein Trace (Negative) Urine Ketones Negative (Negative) Urine Blood Negative /uL (Negative) Urine Nitrite Negative (Negative) Urine Bilirubin Negative (Negative) Urine Urobilinogen Normal mg/dL (Negative) Urine Leukocyte Esterase 3+ /uL (Negative) Urine RBC 2 /hpf (0 - 4) Urine Microscopic WBC 51 /HPF (0-5) Urine Squamous Epithelial Cells Few /hpf (<5) Urine Bacteria Few /hpf (None Seen) Urine Mucus Few (None Seen) Urine Glucose Normal mg/dL (Normal) Test 10/12/25 15:43 10/12/25 15:29 10/12/25 00:00 Hemoglobin A1c 6.5 % A1C (<5.7) B-Type Natriuretic Peptide 17.67 pg/mL (0-100) POC Glucose 89 mg/dl (70-106) Urine Protein/Creatinine Ratio 0.23 Urine Total Protein 32.7 mg/dL (1-14) Other Laboratory Tests 10/14/25 09:21 Brief Hx & Hospital Course: Patient is a 60-year-old female with past medical history of diabetes mellitus, hypertension, anxiety, hyperlipidemia, kidney stones who presents to the ED for chief complaint of dizziness. Patient states her dizziness and blurry vision episode started yesterday while at the end of her shift. Patient stated that she started work yesterday and felt like passing out but never lost consciousness. Patient also endorsed increased frequency and urgency of micturition for last couple of days. patient states that she started taking Mounjaro 5 weeks go and had side effects including nausea, diarrhea, constipation. she does complain of on and off left flank pain with activity. Patient otherwise Patient denies any fever, chills, diarrhea, dysuria, burning sensation, hematuria, nausea, vomiting as of now. Initial lab workup revealed serum creatinine 2.30> 1.74. Triglyceride 186, troponin I and BNP with a normal. Urinalysis revealed leukocyte esterase 3+, WBC 51, bacteria few. Urinary creatinine 137.59, urinary sodium 93, urinary total protein 32.7. UDS negative. CXR no acute abnormality. CT abdomen and pelvis revealed -Right kidney inferior pole with a nonobstructing stone measuring 6 mm.Mild sigmoid colon diverticulosis without evidence of diverticulitis. Severe degenerative changes of the lumbar spine with multilevel high-grade spinal canal stenoses as described. Hospital course-during hospital course patient was treated conservatively, patient's symptoms improved. Blood culture no growth. Patient is discharged home with Keflex 500 mg p.o. b.i.d.. Urine culture more than 3 colony. Patient was advised to follow up with the PCP/DC clinic. Patient was hemodynamically stable on discharge. All questions answered. General examination- awake, alert, oriented HEENT- PEERLA, no acute nasal discharge Cardiovascular- S1-S2 audible, rate and rhythm regular, no murmur Respiratory- CTAB, no wheeze or rhonchi Gastrointestinal-nontender, bowel sound+. Nondistended Musculoskeletal-no acute joint swelling or tenderness or redness Lower extremity- no leg edema Neurological- cranial nerves intact, no acute dysarthria or dysphagia Psychiatry- denies depression or SI or HI Skin- no acute rash or purpura Assessment # acute complicated UTI # suspected sepsis # FRANKLIN likely due to VMN # presyncope # nephrolithiasis # diabetes mellitus type 2 # dyslipidemia # hypertension # diverticulosis with the diverticulitis # severe degenerative disease of lumbar spine # multilevel high-grade spinal stenosis # morbid obesity, BMI 39.7 Plan Keflex 500 mg p.o. b.i.d. for 5 days Resume other home medications Discontinue Mounjaro for now Follow up with the PCP/DC clinic Please speak to your PCP regarding Mounjaro Avoid dehydration Operations or Procedures [place] [id number] Ph: [phone] DIAGNOSTIC IMAGING Diagnostic Imaging Report : [id number] Signed PATIENT: PAUL PANIAGUA ACCT: [id number] UNIT: [id number] : 1965 LOC: ER ROOM / BED: / AGE / SEX: 60 / F ADM STATUS: REG ER SERVICE 1530 ORDERING PHYSICIAN: VINH ELIAS MD PROCEDURE(s): CXRP - CHEST PORTABLE REASON: dizziness ORDER NUMBER(s): [id number], ACCESSION NUMBER(s): [id number] INDICATION: dizziness TECHNIQUE: Frontal view of the chest. COMPARISON: None FINDINGS/IMPRESSION: The lungs are clear. The cardiomediastinal silhouette is unremarkable. No pleural effusion or pneumothorax. No acute osseous abnormality. ATED BY: TONY CANELA MD DICTATED DATE/TIME: 10/12/251554 SIGNED BY: TONY CANELA MD SIGNED DATE/TIME: 10/12/251554 CC: [place] [id number] Ph: [phone] DIAGNOSTIC IMAGING Diagnostic Imaging Report : [id number] Signed PATIENT: PAUL PANIAGUA ACCT: [id number] UNIT: [id number] : 1965 [facility] BED: 0293T / A AGE / SEX: 60 / F ADM STATUS: ADM IN SERVICE 00 ORDERING PHYSICIAN: MARINA HUFF RESIDENT PROCEDURE(s): ABPL - CT AB PEL WO CON-NO ORAL OR IV REASON: r/o kidney stones ORDER NUMBER(s): [id number], ACCESSION NUMBER(s): [id number] CLINICAL HISTORY: Abdominal pain. Rule out kidney stones. TECHNIQUE: CT of the abdomen and pelvis was performed without intravenous contrast. This exam was performed according to our departmental dose optimization program. Up-to-date CT equipment and radiation dose reduction techniques are utilized as appropriate. CTDIvol: 24.2 mGy; DLP: 1546.1 mGy-cm. COMPARISON: None available. FINDINGS: Lack of intravenous contrast limits assessment of the organs and vasculature. Within this limitation, the following assessment is made: Lower Chest: Lung Bases: Clear. Abdomen and Pelvis: Liver: Unremarkable. Gallbladder: Unremarkable. Bile Ducts: Unremarkable. Pancreas: Unremarkable. Spleen: Unremarkable. Adrenal glands: Unremarkable. Kidneys/Ureters: Right kidney inferior pole with a nonobstructing stone measuring up to 6 mm (249, 601/62). No evidence of left-sided urinary tract stones. No evidence of obstructing urinary tract stones. No hydroureteronephrosis. Stomach: Unremarkable. Small and Large Bowel: No evidence of bowel obstruction or abnormal bowel wall thickening. Mild sigmoid colon diverticulosis without evidence of diverticulitis. Appendix: Surgically absent. Vasculature: Mild calcific atherosclerosis of the abdominal aorta and branches. No evidence of an abdominal aortic aneurysm. Lymph nodes: Unremarkable. Mesentery: No evidence of intraperitoneal free gas or liquid. Pelvic Organs: Prior hysterectomy. Bladder: Unremarkable. Abdominal Wall: Small fat-containing umbilical hernia. Soft tissues: Unremarkable. Bones: No acute or suspicious osseous abnormality. Severe degenerative changes of the lumbar spine (with notable multilevel advanced degenerative discogenic changes/vacuum disc phenomenon and high-grade spinal canal stenoses at the L2- L3, L3-L4, and L4-L5 levels). Osseous structures are demineralized. Other: None. IMPRESSION: 1. No acute intra-abdominal or intrapelvic abnormality. Specifically, no obstructing urinary tract stones or hydroureteronephrosis. 2. Right kidney inferior pole with a nonobstructing stone measuring 6 mm. 3. Mild sigmoid colon diverticulosis without evidence of diverticulitis. 4. Severe degenerative changes of the lumbar spine with multilevel high-grade spinal canal stenoses as described. ATED BY: YASMIN ISAAC MD DICTATED DATE/TIME: 10/12/252332 SIGNED BY: YASMIN ISAAC MD SIGNED DATE/TIME: 10/12/252332 CC: Condition at Discharge: Stable Final Diagnosis/Problems List # acute complicated UTI # suspected sepsis # FRANKLIN likely due to VMN # presyncope # nephrolithiasis # diabetes mellitus type 2 # dyslipidemia # hypertension # diverticulosis with the diverticulitis # severe degenerative disease of lumbar spine # multilevel high-grade spinal stenosis # morbid obesity, BMI 39.7 Discharge Disposition: Home Discharge Instruct/Medications Diet: Consistent carbohydrate, Cardiac 2g Na,low cholest Activity: No Restrictions, As Tolerated Follow Up/Referral: DC CLINIC PCP Medications: ABOVE Scheduled Cephalexin (Keflex Capsule), 500 MG PO BID Miscellaneous Medications Cyanocobalamin (B12), 1,000 MCG PO, (Reported) Discharge Statement: "Patient was advised to return to the ER or call 911 if any headaches, dizziness, shortness of breath, chest pain, abdominal pain, bleeding, fevers, or worsening of medical condition. Patient was counseled about treatment plan, medications, possible side effects, patientverbalized understanding. All questions were answered to the best of my ability. This discharge took greater then 30 minutes in planning, reviewing documentation, counseling the patient, and discussing with other team members." ASSESSMENT ASSESSMENT Assessment Acute complicated UTI FRANKLIN likely due to VMN Visit Coding STANDARD RES Billing Provider: OKSANA AMOR MD Date of Service if different f: Oct 14, 2025 Common Visit Codes: 24378-VUQ/OBS DISCH DAY >30min KASIE JEFFERY RESIDENT Oct 14, 2025 15:24
--- NOTE | 2025-10-15 13:07 | DVHSR ---
APPROVED REPORT EXAM: LIMITED Two-dimensional and M-mode echocardiogram with Doppler and color Doppler. Blood Pressure: 122/58 mmHg INDICATION rule out structural heart disease RISK FACTORS Obesity: Height: 5'6, Weight: 289 DIMENSIONS LVDd 3.6 (3.8-5.7cm) LA (2D) 3.8 (1.9-4.0cm) Aortic Root 3.2 (2.0-3.7cm) LVDs 2.2 (2.5-4.0cm) LA (MM) (1.9-4.0cm) Aortic Cusp Exc 1.8 (1.5-2.0cm) EF (%) 60.0 (55-70%) Rt. Atrium 3.5 (1.9-4.0cm) Asc. Aorta 3.0 cm IVSd 1.4 (0.7-1.1cm) RV (D) 3.7 (1.8-2.4cm) PWd 1.3 (0.7-1.1cm) Mitral Valve Mitral Mitral Stenosis E wave 0.61m/s MV Mean GR. mmHg A wave 0.75m/s MV Peak GR. mmHg E/A ratio 0.8 2D MVA cm2 DECEL Time 213ms PRESS 1/2 Time ms Aortic Valve Aortic Valve Aortic Stenosis V1 0.97m/s AO Mean GR. 5mmHg V2 1.45m/s AO Peak GR. 8mmHg LVOT Diameter 2.1 (1.8-2.4cm) Doppler TAMMIE 2.32cm2 Pulmonic Valve V2 0.89m/s Other Information Quality : Technically Limited Rhythm : Technically limited study due to body habitus.patient position. Conclusion 1-Normal left ventricle systolic function with estimated ejection fraction of 60%. Normal LV wall motion. There is a mild left ventricle hypertrophy 2-Mildly dilated right ventricle dilatation with normal systolic function 3-Trace mitral and tricuspid regurgitation
== END 2025-10-14 14:29 | disposition home or self-care (01) | DRG 720 ==
LOC: ER 15:13 → OVERFLOW 21:56 → TELE-WESTW 23:13 → WEST WING 10-14 02:43
PROVIDERS: ADMIT Student in an Organized Health Care Education/Training Program; ATTEND Student in an Organized Health Care Education/Training Program
DX: A41.9 Sepsis, unspecified organism (principal); N17.0 Acute kidney failure with tubular necrosis; N39.0 Urinary tract infection, site not specified; E11.9 Type 2 diabetes mellitus without complications; F32.A Depression, unspecified; I10 Essential (primary) hypertension; Z68.39 Body mass index [BMI] 39.0-39.9, adult; Z20.822 Contact with and (suspected) exposure to COVID-19; E66.01 Morbid (severe) obesity due to excess calories; E83.52 Hypercalcemia; E78.5 Hyperlipidemia, unspecified; F41.9 Anxiety disorder, unspecified; Z96.653 Presence of artificial knee joint, bilateral; K57.30 Diverticulosis of large intestine without perforation or abscess without bleeding; N20.0 Calculus of kidney; M48.061 Spinal stenosis, lumbar region without neurogenic claudication; Z88.2 Allergy status to sulfonamides; Z87.442 Personal history of urinary calculi; Z90.49 Acquired absence of other specified parts of digestive tract; Z90.710 Acquired absence of both cervix and uterus
CPT/HCPCS: 36415; 71045; 74176; 80048; 80053; 80061; 80076; 80307; 81001; 82306; 82570; 82962; 83036; 83605; 83735; 83880; 83970; 84100; 84156; 84300; 84443; 84484; 85025; 87040; 87086; 87426; 87804; 93005; 93306; 99291; G0378